=== PATIENT | male | born 1965 | race Caucasian/White ===

== ENCOUNTER 2024-05-19 14:36 | Emergency (ER) | payer OTHER ==
[2024-05-19 14:49] VITALS: RESP 16
--- NOTE | 2024-05-19 14:54 | ED ---
Lower Extremity Injury HPI - General Chief Complaint: Extremity Injury, Lower Stated Complaint: ankle injury Time Seen by Provider: 05/19/24 14:54 Source: patient, RN notes reviewed Mode of arrival: wheelchair Limitations: no limitations - History of Present Illness Initial Comments: This is a 58-year-old male presents emergency department chief complaint of left ankle pain. Patient states that on Sunday he was outside going to build up a when he tripped falling his left ankle and fell. Patient denies hitting his head or loss of conscious at the time of this event, remembers the event occurring. Patient is able to ambulate however with severe pain. Patient states that he has pain with pressure of the left ankle and with ankle mobility. He has been taking Tylenol Motrin at home with minimal relief. No other acute complaints at this time. - Related Data Allergies Allergy/AdvReac Type Severity Reaction Status Date / Time No Known Allergies Allergy Verified 05/19/24 14:49 Review of Systems ROS Statement: Those systems with pertinent positive or pertinent negative responses have been documented in the HPI. ROS Other: All systems not noted in ROS Statement are negative. Past Medical History Additional Past Medical History / Comment(s): kidney stones History of Any Multi-Drug Resistant Organisms: None Reported Past Surgical History: Hernia Repair Past Psychological History: No Psychological Hx Reported Smoking Status: Current every day smoker Past Alcohol Use History: Unable to Obtain Past Drug Use History: Marijuana General Exam Limitations: no limitations General appearance: alert, in no apparent distress Eye exam: Present: normal appearance, PERRL, EOMI. Absent: scleral icterus, conjunctival injection, periorbital swelling Neck exam: Present: normal inspection. Absent: tenderness, meningismus, lymphadenopathy Respiratory exam: Present: normal lung sounds bilaterally. Absent: respiratory distress, wheezes, rales, rhonchi, stridor Cardiovascular Exam: Present: regular rate, normal rhythm, normal heart sounds. Absent: systolic murmur, diastolic murmur, rubs, gallop, clicks GI/Abdominal exam: Present: soft, normal bowel sounds. Absent: distended, tenderness, guarding, rebound, rigid Left Ankle exam: Present: tenderness (lateral malleolus), swelling, ecchymosis. Absent: full ROM, deformity Neurovascular tendon exam: Present: no vascular compromise Gait: observed and limited by pain Back exam: Present: normal inspection Neurological exam: Present: alert, oriented X3, CN II-XII intact Skin exam: Present: warm, dry, intact, normal color. Absent: rash Course Vital Signs 05/19/24 05/19/24 14:46 16:27 Temperature 97.5 F L 98.1 F Pulse Rate 76 78 Respiratory 16 16 Rate Blood Pressure 115/70 118/76 O2 Sat by Pulse 99 99 Oximetry Procedures - Orthopedic Splinting/Casting Injury #1 Side: left Lower Extremity Injury Location: ankle Lower Extremity Immobilizer: Barber wrap, synthetic pre-padded splint Other Orthopedic Equipment: crutches Medical Decision Making - Medical Decision Making Was pt. sent in by a medical professional or institution (, PA, INSULATION MECHANIC, urgent care, hospital, or care home...) When possible be specific @ -No Did you speak to anyone other than the patient for history (EMS, parent, family, police, friend...)? What history was obtained from this source @ -No Did you review nursing and triage notes (agree or disagree)? Why? @ -I reviewed and agree with nursing and triage notes Were old charts reviewed (outside hosp., previous admission, EMS record, old EKG, old radiological studies, urgent care reports/EKG's, care home records)? Report findings @ -No old charts were reviewed Differential Diagnosis (chest pain, altered mental status, abdominal pain women, abdominal pain men, vaginal bleeding, weakness, fever, dyspnea, syncope, headache, dizziness, GI bleed, back pain, seizure, CVA, palpatations, mental health, musculoskeletal)? @ -Differential Musculoskeletal Muscular strain, contusion, ligament sprain, fracture, arthritis, septic arth ritis, bursitis, cellulitis, muscle spasm, nerve compression, DVT, arterial occlusion, herpes zoster, electrolyte abnormality, tumor.... This is not meant to be in all inclusive list EKG interpreted by me (3pts min.). @ -None X-rays interpreted by me (1pt min.). @ -xray of the left ankle reveals a fracture of the distal fibula, no osseous abnormalities of the left foot. CT interpreted by me (1pt min.). @ -None done U/S interpreted by me (1pt. min.). @ -None done What testing was considered but not performed or refused? (CT, X-rays, U/S, labs)? Why? @ -None What meds were considered but not given or refused? Why? @ -None Did you discuss the management of the patient with other professionals (professionals i.e. , PA, INSULATION MECHANIC, lab, RT, psych nurse, professor of social work, residence counselor, t eacher, title officer, heel caser)? Give summary @ -No Was smoking cessation discussed for >3mins.? @ -No Was critical care preformed (if so, how long)? @ -No Were there social determinants of health that impacted care today? How? (Homelessness, low income, unemployed, alcoholism, drug addiction, transportation, low edu. Level, literacy, decrease access to med. care, long-term, rehab)? @ -No Was there de-escalation of care discussed even if they declined (Discuss DNR or withdrawal of care, Hospice)? DNR status @ -No What co-morbidities impacted this encounter? (DM, HTN, Smoking, COPD, CAD, Cance r, CVA, ARF, Chemo, Hep., AIDS, mental health diagnosis, sleep apnea, morbid obesity)? @ -None Was patient admitted / discharged? Hospital course, mention meds given and route, prescriptions, significant lab abnormalities, going to OR and other pertinent info. @ -Discharge. 58-year-old male with left ankle injury. On examination patient noted to have ecchymosis over the lateral ankle in addition to pain with range of motion. Patient's pain is exacerbated with ambulation. X-ray concerning for a distal fibula fracture. Patient was placed in a and instructed to continue nonweightbearing status until he follows up with provided plant technical specialist. He is provided with crutches. Strict return parameters discussed with the patient he is verbalized understanding. Case discussed with Dr. Zuniga. Undiagnosed new problem with uncertain prognosis? @ -No Drug Therapy requiring intensive monitoring for toxicity (Heparin, Nitro, Insulin, Cardizem)? @ -No Were any procedures done? @ -orthopeadic splinting Diagnosis/symptom? @ -Distal fibula fracture of left ankle Acute, or Chronic, or Acute on Chronic? @ -Acute Uncomplicated (without systemic symptoms) or Complicated (systemic symptoms)? @ -Uncomplicated Side effects of treatment? @ -No Exacerbation, Progression, or Severe Exacerbation? @ -No Poses a threat to life or bodily function? How? (Chest pain, [place], [place], pneumonia, PE, COPD, DKA, ARF, appy, cholecystitis, CVA, Diverticulitis, Homicidal, Suicidal, threat to staff... and all critical care pts) @ -No Disposition Clinical Impression: Fracture of distal end of fibula Disposition: HOME SELF-CARE Condition: Good Instructions (If sedation given, give patient instructions): Ankle Fracture (ED) Additional Instructions: Return to the emergency department if your symptoms worsen or improve. Follow- up with provided plant technical specialist for further evaluation. Continue nonweightbearing status. Is patient prescribed a controlled substance at d/c from ED?: No Referrals: Lisa Cazares MD [Primary Care Provider] - 1-2 days Keven Elizalde DO [Doctor of Osteopathic Medicine] - 1-2 days Time of Disposition: 16:20
[2024-05-19] MEDS: ACETAMINOPHEN TAB 500 MG TAB PO STA (15:19)
--- NOTE | 2024-05-19 15:52 | XR ---
Left ankle: HISTORY: Pain COMPARISON: None. TECHNIQUE: 3 views left ankle were obtained. FINDINGS: There is a horizontal nondisplaced fracture of the distal fibula below the level of the tibial plafon d. There is mild lateral soft tissue swelling. The ankle mortise is intact. IMPRESSION: Fracture of the distal fibula as described above.
--- NOTE | 2024-05-19 15:56 | XR ---
Left foot. HISTORY: Pain COMPARISON: None TECHNIQUE: 3 views left foot were obtained. FINDINGS: Best seen on the accompanying left ankle radiographs, there is a horizontal nondisplaced fracture di stal left fibula below the level of the tibial plafond. Remaining visualized osseous structures of th e foot and ankle are intact. There is no radiopaque foreign body. No intra-articular abnormality seen . IMPRESSION: 1. No fractures of the left foot. 2. Fracture of the distal fibula as described above.
[2024-05-19 16:29] VITALS: BP 118/76; PULSE 78; TEMP 98.1
== END 2024-05-19 16:30 | disposition home or self-care (01) ==
LOC: EC 14:36
DX: S82.832A Other fracture of upper and lower end of left fibula, initial encounter for closed fracture (principal); F17.200 Nicotine dependence, unspecified, uncomplicated; F12.90 Cannabis use, unspecified, uncomplicated; W01.0XXA Fall on same level from slipping, tripping and stumbling without subsequent striking against object, initial encounter
CPT/HCPCS: 29515; 99283